=== PATIENT | male | born 1980 | race African-American/Black ===

== ENCOUNTER 2017-01-06 16:31 | Emergency (ER) | payer OTHER ==
[~2017-01-06] VITALS: Ht 180.3 cm; Wt 142.9 kg
[2017-01-06 16:33] VITALS: BP 158/100
[2017-01-06] MEDS ORDERED: MOBIC15 MG PO (17:38)
== END 2017-01-06 17:45 | disposition home or self-care (01) ==
LOC: ER 16:31
DX: S46.211A Strain of muscle, fascia and tendon of other parts of biceps, right arm, initial encounter (principal); X58.XXXA Exposure to other specified factors, initial encounter; Y93.89 Activity, other specified; Y92.89 Other specified places as the place of occurrence of the external cause; Y99.9 Unspecified external cause status